=== PATIENT | male | born 1965 | race Hispanic/Latino ===

== ENCOUNTER 2021-08-09 20:20 | Emergency (ER) | payer BC, OTHER ==
[2021-08-09] MEDS ORDERED: DIPHENHYDRAMINE 50 MG/ML VIAL ONE (21:21)
[2021-08-09] MEDS ORDERED: NA CHLORIDE 0.9% 1,000 ML ONE (21:21)
[2021-08-09] MEDS ORDERED: METHYLPREDNISOLONE 125 MG INJ ONE (21:21)
[2021-08-09] MEDS ORDERED: FAMOTIDINE 20 MG/2 ML VIAL IV ONE (21:21)
--- NOTE | 2021-08-09 22:47 | ER ---
Nurse's Notes [facility] Name: Adriel Sarmiento Age: 55 yrs Sex: Male : 1965 Arrival Date: 08/09/2021 Time: 20:23 Bed 12 Private MD: Diagnosis: Allergic urticaria Presentation: 08/09 20:29 Chief complaint: Patient states: Rash that began under right arm this morning after lp1 going to gym; reports rash that has spread to general body now, itchy, red, raised; Denies any new skin products; Denies sob. Coronavirus screen: At this time, the client does not indicate any symptoms associated with coronavirus-19. Ebola Screen: No symptoms or risks identified at this time. Initial Sepsis Screen: Does the patient meet any 2 criteria? No. Patient's initial sepsis screen is negative. Does the patient have a suspected source of infection? No. Patient's initial sepsis screen is negative. Risk Assessment: Do you want to hurt yourself or someone else? Patient reports no desire to harm self or others. Onset of symptoms was August 09, 2021. 20:29 Method Of Arrival: Ambulatory lp1 20:29 Acuity: ELIZABETH 4 lp1 Historical: - Allergies: 20:31 No Known Allergies; lp1 - Home Meds: 20:31 Metformin Oral [Active]; lp1 - PMHx: 20:31 Diabetes mellitus; lp1 - PSHx: 20:31 None; lp1 - Immunization history:: Adult Immunizations up to date. - Social history:: Smoking status: Patient denies any tobacco usage or history of. Screenin:32 Abuse screen: Denies threats or abuse. Denies injuries from another. Nutritional lp1 screening: No deficits noted. Tuberculosis screening: No symptoms or risk factors identified. Fall Risk None identified. Assessment: 20:38 General: Appears in no apparent distress. comfortable, Behavior is calm, cooperative, jb4 appropriate for age. Pain: Denies pain. Neuro: Level of Consciousness is awake, alert, obeys commands, Oriented to person, place, time, situation. Cardiovascular: Patient's skin is warm and dry. Respiratory: Airway is patent Respiratory effort is even, unlabored, Respiratory pattern is regular, symmetrical. GI: No signs and/or symptoms were reported involving the gastrointestinal system. : No signs and/or symptoms were reported regarding the genitourinary system. EENT: No signs and/or symptoms were reported regarding the EENT system. Derm: Skin is intact, Skin is pink, warm \T\ dry. Rash noted that is itchy, red, raised, urticaria, on back, chest, right arm and left arm. 21:56 Reassessment: Patient appears in no apparent distress at this time. Patient and/or jb4 family updated on plan of care and expected duration. Pain level reassessed. Patient is alert, oriented x 3, equal unlabored respirations, skin warm/dry/pink. Hives are no longer visible. Pt denies itching or pain. Patient states feeling better. Patient states symptoms have improved. 23:11 Reassessment: Patient appears in no apparent distress at this time. Patient and/or jb4 family updated on plan of care and expected duration. Pain level reassessed. Patient is alert, oriented x 3, equal unlabored respirations, skin warm/dry/pink. Vital Signs: 20:29 BP 157 / 78; Pulse 80; Resp 18; Temp 98.3(TE); Pulse Ox 96% on R/A; Weight 102.06 kg lp1 (R); Height 5 ft. 10 in. (177.80 cm); Pain 0/10; 21:56 BP 145 / 89; Pulse 68; Resp 16; Pulse Ox 98% on R/A; jb4 23:11 BP 150 / 85; Pulse 67; Resp 16; Pulse Ox 98% on R/A; jb4 20:29 Body Mass Index 32.28 (102.06 kg, 177.80 cm) lp1 ED Course: 20:23 Patient arrived in ED. bp1 20:31 Joe Morrison PA is PHCP. cp 20:31 Juanjose Martinez MD is Attending Physician. cp 20:31 Triage completed. lp1 20:32 Arm band placed on. lp1 20:38 Awaiting ED provider evaluation. jb4 20:38 Patient has correct armband on for positive identification. Placed in gown. Bed in low jb4 position. Call light in reach. Side rails up X 1. Pulse ox on. NIBP on. 20:38 Inserted saline lock: 20 gauge in right antecubital area, using aseptic technique. jb4 Blood collected. 20:45 Vimal Tate, RN is Primary Nurse. jb4 20:47 Nurse Practitioner and/or Physician Train Engineer to see patient. jb4 23:11 No provider procedures requiring assistance completed. IV discontinued, intact, jb4 bleeding controlled, No redness/swelling at site. Pressure dressing applied. Administered Medications: 21:00 Drug: NS 0.9% 1000 ml Route: IV; Rate: 1 bolus; Site: right antecubital; jb4 21:00 Drug: SOLU-Medrol (methylPrednisoLONE) 125 mg Route: IVP; Site: right antecubital; jb4 22:15 Follow up: Response: No adverse reaction; Marked relief of symptoms jb4 21:00 Drug: Benadryl (diphenhydrAMINE) 50 mg Route: IVP; Site: right antecubital; jb4 22:15 Follow up: Response: No adverse reaction; Marked relief of symptoms jb4 21:02 Drug: Pepcid (famotidine) 20 mg Route: IVP; Site: right antecubital; jb4 22:15 Follow up: Response: No adverse reaction; Marked relief of symptoms jb4 21:07 Not Given (Duplicate Order): NS 0.9% 1000 ml IV at 1 bolus Per protocol; 1000 mL bolus jb4 Point of Care Testing: Blood Glucose: 20:38 Blood Glucose: 285 mg/dL; jb4 21:56 Blood Glucose: 242 mg/dL; jb4 Ranges: Outcome: 22:46 Discharge ordered by . cp 23:11 Discharged to home ambulatory, with family. jb4 23:11 Condition: stable 23:11 Discharge instructions given to patient, Instructed on discharge instructions, follow up and referral plans. medication usage, Demonstrated understanding of instructions, follow-up care, medications, Prescriptions given X 2. 23:12 Patient left the ED. jb4 Signatures: Macy Fonseca, RN RN lp1 Joe Morrison PA PA cp Vimal Tate, RN RN jb4 Lucía Werner
--- NOTE | 2021-08-09 22:47 | EDPHYS ---
Physician Documentation [facility] Name: Adriel Sarmiento Age: 55 yrs Sex: Male : 1965 Arrival Date: 08/09/2021 Time: 20:23 Bed 12 Private MD: ED Physician Juanjose Martinez HPI: 08/09 20:50 This 55 yrs old Male presents to ER via Ambulatory with complaints of Rash. cp 20:50 The patient's rash thought to be caused by an unknown cause. The rash is located on the cp body diffusely. 20:50 The rash can be described as urticarial, hives. Onset: The symptoms/episode cp began/occurred today. Associated signs and symptoms: Pertinent positives: itching, Pertinent negatives: difficulty breathing, fever, swelling of lips, swelling of throat, swelling of tongue. Severity of symptoms: in the emergency department the symptoms are unchanged. Patient reports unsure of cause of rash. Reports working out at gym and wearing a shirt he does not usually wear prior to rash. Historical: - Allergies: 20:31 No Known Allergies; lp1 - Home Meds: 20:31 Metformin Oral [Active]; lp1 - PMHx: 20:31 Diabetes mellitus; lp1 - PSHx: 20:31 None; lp1 - Immunization history:: Adult Immunizations up to date. - Social history:: Smoking status: Patient denies any tobacco usage or history of. ROS: 21:00 Constitutional: Negative for fever, poor PO intake. cp 21:00 ENT: Negative for sore throat, difficulty swallowing, difficulty handling secretions. 21:00 Cardiovascular: Negative for chest pain. 21:00 Respiratory: Negative for cough, shortness of breath, wheezing. 21:00 Skin: Positive for rash, diffusely. 21:00 All other systems are negative. Exam: 21:05 Constitutional: The patient appears in no acute distress, alert, awake, non-toxic, well cp developed, well nourished. 21:05 Head/Face: Normocephalic, atraumatic. cp 21:05 Eyes: Periorbital structures: appear normal, Conjunctiva: normal, no exudate, no injection, Sclera: no appreciated abnormality, Lids and lashes: appear normal, bilaterally. 21:05 ENT: External ear(s): are unremarkable, Nose: is normal, Mouth: Lips: moist, Oral mucosa: pink and intact, moist, Posterior pharynx: Airway: no evidence of obstruction, patent, swelling, is not appreciated, erythema, is not appreciated. 21:05 Cardiovascular: Rate: normal, Rhythm: regular, Edema: is not appreciated, JVD: is not appreciated. 21:05 Respiratory: the patient does not display signs of respiratory distress, Respirations: normal, no use of accessory muscles, no retractions, labored breathing, is not present, Breath sounds: are clear throughout, no decreased breath sounds, no stridor, no wheezing. 21:05 Abdomen/GI: Exam negative for discomfort, distension, guarding. 21:05 Skin: rash a moderate rash is noted, rash can be described as urticarial, hives, and is diffusely located. Vital Signs: 20:29 BP 157 / 78; Pulse 80; Resp 18; Temp 98.3(TE); Pulse Ox 96% on R/A; Weight 102.06 kg lp1 (R); Height 5 ft. 10 in. (177.80 cm); Pain 0/10; 21:56 BP 145 / 89; Pulse 68; Resp 16; Pulse Ox 98% on R/A; jb4 23:11 BP 150 / 85; Pulse 67; Resp 16; Pulse Ox 98% on R/A; jb4 20:29 Body Mass Index 32.28 (102.06 kg, 177.80 cm) lp1 MDM: 20:49 Patient medically screened. cp 22:45 Data reviewed: vital signs, nurses notes. cp 22:45 Differential diagnosis: allergic reaction, anaphylaxis. Counseling: I had a detailed cp discussion with the patient and/or guardian regarding: the historical points, exam findings, and any diagnostic results supporting the discharge/admit diagnosis, to return to the emergency department if symptoms worsen or persist or if there are any questions or concerns that arise at home. Response to treatment: the patient's symptoms have markedly improved after treatment, patient is well hydrated. symptoms improved, and as a result, I will discharge patient. 08/09 20:55 Order name: Glucose, Ancillary Testing; Complete Time: 22:36 EDMS 08/09 22:05 Order name: Glucose, Ancillary Testing; Complete Time: 22:36 EDMS 08/09 22:36 Interpretation: Reviewed. cp Administered Medications: 21:00 Drug: NS 0.9% 1000 ml Route: IV; Rate: 1 bolus; Site: right antecubital; jb4 21:00 Drug: SOLU-Medrol (methylPrednisoLONE) 125 mg Route: IVP; Site: right antecubital; jb4 22:15 Follow up: Response: No adverse reaction; Marked relief of symptoms jb4 21:00 Drug: Benadryl (diphenhydrAMINE) 50 mg Route: IVP; Site: right antecubital; jb4 22:15 Follow up: Response: No adverse reaction; Marked relief of symptoms jb4 21:02 Drug: Pepcid (famotidine) 20 mg Route: IVP; Site: right antecubital; jb4 22:15 Follow up: Response: No adverse reaction; Marked relief of symptoms jb4 21:07 Not Given (Duplicate Order): NS 0.9% 1000 ml IV at 1 bolus Per protocol; 1000 mL bolus jb4 Point of Care Testing: Blood Glucose: 20:38 Blood Glucose: 285 mg/dL; jb4 21:56 Blood Glucose: 242 mg/dL; jb4 Ranges: Critical Glucose Levels:Adult <50 mg/dl or >400 mg/dl <40 mg/dl or >180 mg/dl Disposition: 23:00 Chart complete. cp 08/10 07:04 Co-signature as Attending Physician, Juanjose Martinez MD. [email or web address] Disposition Summary: 08/09/21 22:46 Discharge Ordered Location: Home cp Problem: new cp Symptoms: have improved cp Condition: Stable cp Diagnosis - Allergic urticaria cp Followup: cp - With: Private Physician - When: 2 - 3 days - Reason: Recheck today's complaints Discharge Instructions: - Discharge Summary Sheet cp - Allergies, Adult cp - Hives cp Forms: - Medication Reconciliation Form cp - Thank You Letter cp - Antibiotic Education cp - Prescription Opioid Use cp Prescriptions: - Pepcid 20 mg Oral Tablet - take 1 tablet by ORAL route every 12 hours for 5 days; 10 tablet; Refills: 0, cp Product Selection Permitted - Prednisone 20 mg Oral Tablet - take 2 tablets by ORAL route once daily for 5 days; 10 tablet; Refills: 0, cp Product Selection Permitted Signatures: Dispatcher [employer] Macy Daniels RN RN lp1 Joe Morrison PA PA cp Bryson, James, RN RN jb4 Juanjose Martinez MD MD [email or web address] Corrections: (The following items were deleted from the chart) 17:08/09 21:15 Skin: Positive for rash, diffusely, cp cp 08/10 17:13 08/09 21:15 Respiratory: Negative for cough, shortness of breath, wheezing, cp cp 08/10 17:08/09 21:15 ENT: Negative for sore throat, difficulty swallowing, difficulty handling cp secretions, cp 08/10 17:08/09 21:15 Constitutional: Negative for fever, poor PO intake, cp cp 08/10 17:13 08/09 21:15 Cardiovascular: Negative for chest pain, cp cp 08/10 17:13 08/09 21:15 All other systems are negative, cp cp
[2021-08-09 23:17] VITALS: TEMP 98.3
[2021-08-09 23:18] VITALS: O2SAT 98
[2021-08-09 23:19] VITALS: BP 150/85
== END 2021-08-09 23:12 | disposition home or self-care (01) ==
LOC: ER 20:20
DX: L50.0 Allergic urticaria (principal); E11.9 Type 2 diabetes mellitus without complications
CPT/HCPCS: 82947 ×2; 96375; 96374; 99284; J1200; J7030; J2930